=== PATIENT | male | born 1960 | race Caucasian/White ===

== ENCOUNTER 2024-06-10 08:35 | Emergency (ER) | payer OTHER, BC ==
[~2024-06-10] VITALS: Ht 182.9 cm; Wt 97.3 kg
[2024-06-10] MEDS ORDERED: FLUOXETINE HCL20 MG PO (09:00)
[2024-06-10] MEDS ORDERED: ZOCOR40 MG PO (09:00)
[2024-06-10] MEDS ORDERED: TRAZODONE HCL300 MG PO (09:00)
[2024-06-10] MEDS ORDERED: ALLOPURINOL300 MG (09:01)
[2024-06-10] MEDS ORDERED: HYDROCODON-ACE1 EA11 PO (09:36)
[2024-06-10 10:51] VITALS: BP 152/84
== END 2024-06-10 10:52 | disposition home or self-care (01) ==
LOC: ED 08:35
DX: S52.501A Unspecified fracture of the lower end of right radius, initial encounter for closed fracture (principal); E78.00 Pure hypercholesterolemia, unspecified; M10.9 Gout, unspecified; Z85.46 Personal history of malignant neoplasm of prostate; Z96.651 Presence of right artificial knee joint; Z88.8 Allergy status to other drugs, medicaments and biological substances; Z79.899 Other long term (current) drug therapy; W01.0XXA Fall on same level from slipping, tripping and stumbling without subsequent striking against object, initial encounter
CPT/HCPCS: 29125; 73110; 99283-25